=== PATIENT | male | born 1955 | race Caucasian/White ===

== ENCOUNTER 2019-10-05 06:22 | Emergency (ER) | payer MEDICARE, OTHER ==
[2019-10-05 06:29] VITALS: TEMP 98.8
[2019-10-05] MEDS ORDERED: diphenhydrAMINE 50 MG/ML 1 ML VIAL IVP STA ×2 (06:36→06:44)
[2019-10-05] MEDS ORDERED: methylPREDNISolone SOD SUCCI 125 MG/2 ML VIAL IV STA ×2 (06:36→06:44)
[2019-10-05] MEDS ORDERED: FAMOTIDINE 20 MG/2 ML VIAL IV STA ×2 (06:36→06:44)
--- NOTE | 2019-10-05 06:45 | ED ---
General Adult HPI - General Chief complaint: Allergic Reaction Stated complaint: Swollen Tongue Time Seen by Provider: 10/05/19 06:30 Source: patient Mode of arrival: ambulatory Limitations: no limitations - History of Present Illness Initial comments: 63-year-old male patient presents to the emergency department today for evaluation of swollen tongue. Patient states this started around 0430 this morning. He denies exposure to new substances. Denies any rash or itching with this. Denies any lip swelling. States he is having some difficulty swallowing but denies any difficulty breathing. Denies any abdominal pain. Patient does admit to taking lisinopril, states his been taking this for the last 5 years. Denies any history of similar reaction. Denies any known ALLERGIES. Patient denies any recent chest pain, nausea, vomiting, diarrhea, constipation, back pain, numbness, tingling, dizziness, weakness, hematuria, dysuria, urinary urgency, urinary frequency, headache, visual changes, or any other complaints. - Related Data Previous Rx's Medication Instructions Recorded Famotidine [Pepcid] 20 mg PO DAILY #5 tablet 10/05/19 predniSONE 50 mg PO DAILY #5 tablet 10/05/19 Allergies Allergy/AdvReac Type Severity Reaction Status Date / Time lisinopril Allergy Swelling Verified 10/05/19 08:26 Review of Systems ROS Statement: Those systems with pertinent positive or pertinent negative responses have been documented in the HPI. ROS Other: All systems not noted in ROS Statement are negative. Past Medical History Past Medical History: Hypertension History of Any Multi-Drug Resistant Organisms: None Reported Past Surgical History: Joint Replacement, Orthopedic Surgery Additional Past Surgical History / Comment(s): elbow surgery, right hip replacement, deviated septum, Past Psychological History: No Psychological Hx Reported Smoking Status: Never smoker Past Alcohol Use History: Daily Past Drug Use History: None Reported General Exam Limitations: no limitations General appearance: alert, in no apparent distress, other (This is a well- developed, well-nourished adult male patient in no acute distress. Vital signs upon presentation are temperature 98.8F, pulse 73, respirations 18, blood pressure 156/94, pulse ox 98% on room air.) ENT exam: Present: mucous membranes moist, other (There is left-sided tongue swelling noted). Absent: normal oropharynx Respiratory exam: Present: normal lung sounds bilaterally. Absent: respiratory distress, wheezes, rales, rhonchi, stridor Cardiovascular Exam: Present: regular rate, normal rhythm, normal heart sounds. Absent: systolic murmur, diastolic murmur, rubs, gallop, clicks GI/Abdominal exam: Present: soft, normal bowel sounds. Absent: distended, tenderness, guarding, rebound, rigid Neurological exam: Present: alert, oriented X3, CN II-XII intact Psychiatric exam: Present: normal affect, normal mood Skin exam: Present: warm, dry, intact, normal color. Absent: rash Course Vital Signs 10/05/19 10/05/19 06:26 07:27 Temperature 98.8 F Pulse Rate 73 76 Respiratory 18 16 Rate Blood Pressure 156/94 154/78 O2 Sat by Pulse 98 97 Oximetry Medical Decision Making - Medical Decision Making 63-year-old male patient presents to the emergency department today for evaluation of tongue swelling. Physical examination did reveal swelling to the tongue was sent the left side. Patient is tolerating his airway breathing without difficulty. Patient does take lisinopril, this is felt to be angioedema related to this. She was given IV Benadryl, Pepcid, Solu-Medrol. Upon reevaluation swelling did improve. Patient is swallowing without difficulty. W e will discharge with prescription for Pepcid and prednisone. Instructed HIS primary care physician for recheck as soon as possible. He is instructed to discontinue his lisinopril and report this is an ALLERGY. He is instructed to present to the nearest emergency department should symptoms worsen. Return parameters discussed in detail. He verbalizes understanding and agrees with this plan. Disposition Clinical Impression: Angioedema Disposition: HOME SELF-CARE Condition: Good Instructions (If sedation given, give patient instructions): Angioedema (ED) Additional Instructions: Do not take lisinopril. Inform healthcare providers and her physician a you are ALLERGIC to lisinopril and MARCO A inhibitors. Take medications as directed. Follow-up through primary care physician for recheck as soon as possible. Return to the emergency department immediately for any new, worsening, or concerning symptoms. Prescriptions: Famotidine [Pepcid] 20 mg PO DAILY #5 tablet predniSONE 50 mg PO DAILY #5 tablet Is patient prescribed a controlled substance at d/c from ED?: No Referrals: Nonstaff,Physician [Primary Care Provider] - 1-2 days Time of Disposition: 08:27
[2019-10-05 07:29] VITALS: RESP 16
[2019-10-05 08:38] VITALS: BP 154/74; PULSE 74
== END 2019-10-05 08:36 | disposition home or self-care (01) ==
LOC: EC 06:22
DX: T78.3XXA Angioneurotic edema, initial encounter (principal); I10 Essential (primary) hypertension; Z88.8 Allergy status to other drugs, medicaments and biological substances; Z96.641 Presence of right artificial hip joint
CPT/HCPCS: 86900; 86901; 86850; 99283; 96374; 96375 ×2; J1200; J2930